=== PATIENT | female | born 1990 | race Caucasian/White ===

== ENCOUNTER 2016-08-02 10:55 | Emergency (ER) | payer SELFPAY ==
[2016-08-02 11:05] VITALS: BP 126/87
[2016-08-02 11:50] LABS: Alanine Aminotransferase 24 units/L (7-56); Albumin 4.1 g/dL (3.9-5); Albumin/Globulin Ratio 1.1 %; Alkaline Phosphatase 66 units/L (35-129); Anion Gap 18 mmol/L; BUN/Creatinine Ratio 11.25; Blood Urea Nitrogen 9 mg/dL (7-17); Calcium 9.4 mg/dL (8.4-10.2); Carbon Dioxide 25 mmol/L (22-30); Chloride 94.7 mmol/L (98-107); Glucose 116 mg/dL (65-100); Lipase 23 units/L (13-60); Potassium 3.6 mmol/L (3.6-5.0); Sodium 134 mmol/L (137-145); Total Protein 7.8 g/dL (6.3-8.2)
[2016-08-02 12:05] LABS: Basophils % (Auto) 0.3 % (0.0-1.8); Eosinophils % (Auto) 0.7 % (0.0-4.3); Hematocrit 42.3 % (30.3-42.9); Hemoglobin 14.4 gm/dl (10.1-14.3); Mean Corpuscular HGB Conc 34 % (30-34); Mean Corpuscular Hemoglobin 31 pg (28-32); Mean Corpuscular Volume 91 fl (79-97); Platelet Count 222 K/mm3 (140-440); Red Blood Count 4.65 M/mm3 (3.65-5.03); Red Cell Distribution Width 12.1 % (13.2-15.2)
[2016-08-02 12:07] LABS: Bilirubin,Urine NEG (Negative); Blood,Urine MOD (Negative); Ketones,Urine NEG (Negative); Leukocyte Esterase,Urine LG (Negative); Nitrite,Urine POS (Negative); Urobilinogen,Urine < 2.0 mg/dL (<2.0)
[2016-08-02 12:37] LABS: WBC,Urine > 182.0 /HPF (0.0-6.0)
[2016-08-02 12:38] LABS: Bacteria,Urine 4+ /HPF (Negative)
--- NOTE | 2016-08-07 20:37 | ED Elopement Review ---
ED Pt Elopement review - Results review Lab results: Laboratory Tests 08/02/16 08/02/16 08/02/16 11:15 11:15 11:15 WBC 11.0 RBC 4.65 Hgb 14.4 H Hct 42.3 MCV 91 MCH 31 MCHC 34 RDW 12.1 L Plt Count 222 Lymph % (Auto) 12.3 L [place] % (Auto) 9.6 H Eos % (Auto) 0.7 Baso % (Auto) 0.3 Lymph # 1.4 [place] # 1.1 H Eos # 0.1 Baso # 0.0 Seg Neutrophils % 77.1 H Seg Neutrophils # 8.5 H Sodium 134 L Potassium 3.6 Chloride 94.7 L Carbon Dioxide 25 Anion Gap 18 BUN 9 Creatinine 0.8 Estimated GFR > 60 BUN/Creatinine Ratio 11.25 Glucose 116 H Calcium 9.4 Total Bilirubin 0.40 AST 20 ALT 24 Alkaline Phosphatase 66 Total Protein 7.8 Albumin 4.1 Albumin/Globulin Ratio 1.1 Lipase 23 Urine Color Pia Urine Turbidity Turbid Urine pH 6.0 Ur Specific [place] 1.012 Urine Protein 100 mg/dl Urine Glucose (UA) Neg Urine Ketones Neg Urine Blood Mod Urine Nitrite Pos Urine Bilirubin Neg Urine Urobilinogen < 2.0 Ur Leukocyte Esterase Lg Urine WBC (Auto) > 182.0 H Urine RBC (Auto) 7.0 U Epithel Cells (Auto) 4.0 Urine Bacteria (Auto) 4+ Urine WBC Clumps 2+ Urine HCG, Qual Negative - Call Back decision Pt Call Back Decision: Call pt to return to ED BIB (for treatment of UTI)
== END 2016-08-02 11:30 | disposition left against medical advice (07) ==
LOC: ED 10:55
DX: M54.5 Low back pain (principal); Z53.21 Procedure and treatment not carried out due to patient leaving prior to being seen by health care provider
CPT/HCPCS: 36415; 80053; 81001; 81025; 83690; 85025